=== PATIENT | female | born 1990 | race African-American/Black ===

== ENCOUNTER 2016-08-08 11:41 | Emergency (ER) | payer MEDICAID ==
[~2016-08-08] VITALS: Ht 160 cm; Wt 63.5 kg
[~2016-08-08 11:41] MED LIST: PREN29TA PO; ZOFR4TAB3 SL
[2016-08-08 11:44] VITALS: BP 142/89; PULSE 76; RESP 18; TEMP 98.6; O2SAT 98
[2016-08-08 12:33] LABS: BLOOD, URINE NEG (NEG); COMMENT (UR) CULT NOT INDICATED; CULTURE IF INDICATED CULT NOT INDICATED; GLUCOSE,URINE NEG (NEG); KETONE, URINE NEG (NEG); NITRITE,URINE NEG (NEG); PH, URINE 6.5 (5.0-8.5); SQUAMOUS EPITHELIAL CELL URINE 8 /hpf (0-5); URINE COLOR YELLOW (YELLW/STRAW)
--- NOTE | 2016-08-08 12:54 | PD ---
HPI Chief Complaint: Complaint Travel History International Travel<30 days: No Contact w/Intl Traveler<30days: No Traveled to known affect area: No History Social History Alcohol Use: Yes Tobacco Use: Yes Allergies-Medications (Allergen,Severity, Reaction): Coded Allergies: No Known Allergies (Verified , 08/08/16) Reported Meds & Prescriptions Reported Meds & Active Scripts Active Plus Iron 29-1 mg ( Vit-Iron Carbonyl) 1 Tab Tab 1 Tab PO DAILY Zofran Odt (Ondansetron Odt) 4 Mg Tab 4 Mg SL Q6HR PRN 5 Days Data Data Last Documented VS Vital Signs Date Time Temp Pulse Resp B/P Pulse Ox O2 Delivery O2 Flow Rate FiO2 08/08/16 11:44 98.6 76 18 142/89 98 Orders Urinalysis - C+S If Indicated (08/08/16 11:57) Ed Urine Pregnancytest Poc (08/08/16 13:02) Labs Laboratory Tests Test 08/08/16 12:00 Urine Color YELLOW Urine Turbidity HAZY Urine pH 6.5 Urine Specific [place] 1.024 Urine Protein NEG mg/dL Urine Glucose (UA) NEG mg/dL Urine Ketones NEG mg/dL Urine Occult Blood NEG Urine Nitrite NEG Urine Bilirubin NEG Urine Urobilinogen 2.0 MG/DL Urine Leukocyte Esterase NEG Urine RBC 1 /hpf Urine WBC 1 /hpf Urine Squamous Epithelial 8 /hpf Cells Microscopic Urinalysis Comment CULT NOT INDICATED MDM Medical Screen Exam Complete: Yes Emergency Medical Condition: No Primary Impression: Encounter for medical screening examination Condition: Stable Jing Cook Aug 08, 2016 12:54
--- NOTE | 2016-08-08 13:04 | PD ---
HPI . Uncertain if Chief Complaint: Complaint Time Seen by Provider: 12:40 Travel History International Travel<30 days: No Contact w/Intl Traveler<30days: No Traveled to known affect area: No History of Present Illness HPI 25 Year-old female with no past medical history here telling me that she has taken for test at home to her positive and 2 were negative. She is here she wants to find out if she is . She is overdue for her menses by 2 weeks. She does admit there is a chance she is . She has two kids at home and states she was not planning on having another. She denies any abdominal pain, nausea, vomiting, diarrhea, or pain. PFSH Past Medical History Blood Disorders: No Anxiety: No Depression: No Cardiovascular Problems: No Diminished Hearing: No Endocrine: No Genitourinary: No Immune Disorder: No Musculoskeletal: No Neurologic: No Psychiatric: No Reproductive: No Respiratory: No Immunizations Current: Yes PNEUMOCCOCAL Vaccine (Year): 3 : 3 Para: 2 : 1 Dilation and Curettage (D&C): Yes (11/2010) Social History Alcohol Use: Yes Tobacco Use: Yes Substance Use: No Allergies-Medications (Allergen,Severity, Reaction): Coded Allergies: No Known Allergies (Verified , 08/08/16) Reported Meds & Prescriptions Reported Meds & Active Scripts Active Plus Iron 29-1 mg ( Vit-Iron Carbonyl) 1 Tab Tab 1 Tab PO DAILY Plus Iron 29-1 mg ( Vit-Iron Carbonyl) 1 Tab Tab 1 Tab PO DAILY Zofran Odt (Ondansetron Odt) 4 Mg Tab 4 Mg SL Q6HR PRN 5 Days Review of Systems General / Constitutional: No: Fever Eyes: No: Visual changes HENT: No: Headaches Cardiovascular: No: Chest Pain or Discomfort Respiratory: No: Shortness of Breath Gastrointestinal: No: Nausea, Vomiting, Abdominal Pain Genitourinary: No: Dysuria Musculoskeletal: No: Pain Skin: No Rash Neurologic: No: Weakness Psychiatric: No: Depression Endocrine: No: Polydipsia Hematologic/Lymphatic: No: Easy Bruising Physical Exam Narrative GENERAL: AAO x 3, no acute distress, Well-nourished, well-developed patient. SKIN: Warm and dry. No visible rashes or bruising. HEAD: Normocephalic and atraumatic. EYES: No scleral icterus. No injection or drainage. EOM intact, PERRLA ENT: No nasal drainage noted. Mucous membranes pink. Airway patent. NECK: Supple, trachea midline. No JVD. CARDIOVASCULAR: Regular rate and rhythm without murmurs, gallops, or rubs. RESPIRATORY: Breath sounds equal bilaterally. No accessory muscle use. No rhonchi or rales. GASTROINTESTINAL: Abdomen soft, non-tender, nondistended. EXTREMITIES: No cyanosis or edema. BACK: Nontender without obvious deformity. No CVA tenderness. PSYCH: AAO x 3, normal affect. Data Data Last Documented VS Vital Signs Date Time Temp Pulse Resp B/P Pulse Ox O2 Delivery O2 Flow Rate FiO2 08/08/16 11:44 98.6 76 18 142/89 98 Orders Urinalysis - C+S If Indicated (08/08/16 11:57) Ed Urine Pregnancytest Poc (08/08/16 13:02) Labs Laboratory Tests Test 08/08/16 12:00 Urine Color YELLOW Urine Turbidity HAZY Urine pH 6.5 Urine Specific [place] 1.024 Urine Protein NEG mg/dL Urine Glucose (UA) NEG mg/dL Urine Ketones NEG mg/dL Urine Occult Blood NEG Urine Nitrite NEG Urine Bilirubin NEG Urine Urobilinogen 2.0 MG/DL Urine Leukocyte Esterase NEG Urine RBC 1 /hpf Urine WBC 1 /hpf Urine Squamous Epithelial 8 /hpf Cells Microscopic Urinalysis Comment CULT NOT INDICATED MDM Medical Decision Making Medical Screen Exam Complete: Yes Emergency Medical Condition: Yes Medical Record Reviewed: Yes Differential Diagnosis amenorrhea due to , blighted ovum, ectopic Narrative Course 25 Year-old female with no past medical history here telling me that she has taken for test at home to her positive and 2 were negative. She is here she wants to find out if she is . She is overdue for her menses by 2 weeks. She does admit there is a chance she is . She has two kids at home and states she was not planning on having another. She denies any abdominal pain, nausea, vomiting, diarrhea, or pain. Urine preg is negative. UA is negative. I discussed results with the patient. Recommend she find a primary care provider in the area for further medical care. I advised follow-up in 3-5 days. I encouraged her to start taking vitamins. Patient verbalized understanding of instructions, questions were answered, and thanked me for their care. I advised them if their condition worsens, please return to the nearest emergency room for further care. Diagnosis Primary Impression: Amenorrhea Patient Instructions: General Instructions Additional Instructions: Please find a new primary care provider to help navigate your health care needs. You should try to get an appointment in 3-5 days. You can start taking prenatals if you plan on becoming . Return to ED if your symptoms worsen. Scripts Vit-Iron Carbonyl ( Plus Iron 29-1 mg)1 Tab Tab1 Tab PO DAILY #30 TAB Ref 0 Prov:Jing Cook 08/08/16 Disposition: 01 DISCHARGE HOME Condition: Stable Jing Cook Aug 08, 2016 13:04
[2016-08-08] MEDS ORDERED: PREN29TA PO (13:10)
== END 2016-08-08 13:22 | disposition home or self-care (01) ==
LOC: NEPB 11:41
DX: N91.2 Amenorrhea, unspecified (principal); Z32.02 Encounter for pregnancy test, result negative
CPT/HCPCS: 81001; 84703; 99283

== ENCOUNTER 2017-02-19 09:51 | Emergency (ER) | payer MEDICAID ==
[2017-02-19 09:53] VITALS: BP 128/88; PULSE 65; RESP 17; TEMP 98.4; O2SAT 98
[2017-02-19 10:45] LABS: AUTOMATED NEUTROPHIL # 4.1 TH/MM3 (1.8-7.7); BASOPHIL % 0.5 % (0.0-2.0); EOSINOPHIL # 0.3 TH/MM3 (0-0.4); EOSINOPHIL % 3.9 % (0.0-4.0); HEMATOCRIT 32.9 % (35.0-46.0); HEMO FLAGS DIFF FINAL; LYMPHOCYTE # 2.1 TH/MM3 (1.0-4.8); MEAN CELL VOLUME 88.8 FL (80.0-100.0); MEAN CORPUSCULAR HEMOGLOBIN 28.6 PG (27.0-34.0); MEAN CORPUSCULAR HGB CONC 32.2 % (32.0-36.0); MONO % 12.1 % (0.0-8.0); NEUT % 55.5 % (16.0-70.0); PLATELET COUNT 301 TH/MM3 (150-450); RED BLOOD COUNT 3.71 MIL/MM3 (4.00-5.30); RED CELL DISTRIBUTION WIDTH 12.9 % (11.6-17.2); WHITE BLOOD COUNT 7.4 TH/MM3 (4.0-11.0)
[2017-02-19 10:47] LABS: BLOOD, URINE SMALL (NEG); GLUCOSE,URINE NEG (NEG); KETONE, URINE NEG (NEG); MUCUS URINE FEW /lpf (OCC); NITRITE,URINE NEG (NEG); PH, URINE 6.5 (5.0-8.5); SQUAMOUS EPITHELIAL CELL URINE 1 /hpf (0-5); URINE COLOR YELLOW (YELLW/STRAW)
[2017-02-19 10:57] LABS: ANION GAP 6 MEQ/L (5-15); AST (GOT) 19 U/L (15-37); BICARBONATE 26.3 MEQ/L (21.0-32.0); BLOOD UREA NITROGEN 15 MG/DL (7-18); CHLORIDE 107 MEQ/L (98-107); GLOMERULAR FILTRATION RATE 111 ML/MIN (>89); POTASSIUM 3.7 MEQ/L (3.5-5.1); SODIUM (NA) 139 MEQ/L (136-145)
[2017-02-19 10:59] LABS: ALT (GPT) 28 U/L (10-53)
[2017-02-19 11:01] LABS: COMMENT (UR) CULT NOT INDICATED; CULTURE IF INDICATED CULT NOT INDICATED
[2017-02-19 11:34] LABS: TOTAL BILIRUBIN ADULT 0.3 MG/DL (0.2-1.0)
[2017-02-19 11:43] LABS: ALKALINE PHOSPHATASE 45 U/L (45-117)
[2017-02-20] MEDS ORDERED: ZANT150T2 PO (00:48)
== END 2017-02-19 11:10 | disposition left against medical advice (07) ==
LOC: NED 09:51
DX: R10.13 Epigastric pain (principal)
CPT/HCPCS: 80053; 81001; 83690; 85025; 99281

== ENCOUNTER 2017-02-19 22:36 | Emergency (ER) | payer MEDICAID ==
[~2017-02-19] VITALS: Ht 162.6 cm; Wt 70.5 kg
[2017-02-19 22:37] VITALS: BP 137/92; PULSE 63; RESP 15; TEMP 99; O2SAT 100
[2017-02-19] MEDS ORDERED: ALUMINUM/MAGNESIUM/SIMETH 30 ML CUP PO ONE (23:30)
[2017-02-19] MEDS ORDERED: LIDOCAINE VISCOUS 2% SOLN 15 ML UDC SWISH-SWAL ONE (23:30)
--- NOTE | 2017-02-19 23:54 | PD ---
HPI Chief Complaint: Abdominal Pain Time Seen by Provider: 23:25 Travel History International Travel<30 days: No Contact w/Intl Traveler<30days: No Traveled to known affect area: No History of Present Illness HPI 26-year-old black female presents a department complaints of epigastric pain for the past 3 days. She states the pain is been constant but has had some waxing and waning of intensity. She states the pain is a 10/10. Sharp and stabbing in nature with radiation to her back. She states the pain is exacerbated by walking and laying down. It is unaffected by her appetite. She ate cheesy tots just prior to coming into the ER this evening. She denies any fever or chills. No nausea vomiting. No lower abdominal pain or vaginal complaints. She denies any radiation of pain to the right shoulder. She denies any exacerbation by eating food. There is no alleviating factors. Last menstrual. Was one week ago. PFSH Past Medical History Medical History: Denies Significant Hx Blood Disorders: No Anxiety: No Depression: No Cardiovascular Problems: No Diminished Hearing: No Endocrine: No Genitourinary: No Immune Disorder: No Musculoskeletal: No Neurologic: No Psychiatric: No Reproductive: No Respiratory: No Immunizations Current: Yes Influenza Vaccination: No PNEUMOCCOCAL Vaccine (Year): 3 ?: Unknown LMP: 02/13/2017 : 3 Para: 2 : 1 Dilation and Curettage (D&C): Yes (11/2010) Social History Alcohol Use: Yes ([facility]) Tobacco Use: No Substance Use: No Allergies-Medications (Allergen,Severity, Reaction): Coded Allergies: No Known Allergies (Verified , 02/19/17) Reported Meds & Prescriptions Reported Meds & Active Scripts Active Zantac (Ranitidine HCl) 150 Mg Tab 150 Mg PO BID Review of Systems Except as stated in HPI: all other systems reviewed are Neg Physical Exam Narrative GENERAL: Well-developed, well-nourished in no apparent distress. Nontoxic appearing. HEAD: Normocephalic, atraumatic. EYES: Pupils equal round and reactive. Extraocular motions intact. No scleral icterus. No injection or drainage. ENT: Nose clear. Throat without erythema, tonsillar hypertrophy or exudate. Uvula midline. Airway patent. NECK: Trachea midline. Supple, nontender, moves head freely. No central bony tenderness or spasm. CARDIOVASCULAR: Regular rate and rhythm without murmurs, gallops, or rubs. RESPIRATORY: Clear to auscultation. Breath sounds equal bilaterally. No wheezes , rales, or rhonchi. GASTROINTESTINAL: Abdomen soft, obese, tenderness in the epigastric and right upper quadrant with some mild guarding.. No hepato-splenomegaly, or palpable masses. No rebound. EXTREMITIES: No clubbing, cyanosis, or edema. No joint tenderness. BACK: Nontender without deformity. No flank tenderness. NEUROLOGICAL: Awake, alert and oriented x 3 .Cranial nerves grossly intact. Motor and sensory grossly within normal limits. Normal speech. Data Data Last Documented VS Vital Signs Date Time Temp Pulse Resp B/P (MAP) Pulse Ox O2 Delivery O2 Flow Rate FiO2 02/19/17 22:37 99.0 63 15 137/92 (107) 100 Room Air Orders Orders Complete Blood Count With Diff (02/19/17 23:30) Comprehensive Metabolic Panel (02/19/17 23:30) Lipase (02/19/17 23:30) Urinalysis - C+S If Indicated (02/19/17 23:30) Iv Access Insert/Monitor (02/19/17 23:30) Ed Urine Pregnancytest Poc (02/19/17 23:30) Al-Mag Hy-Si 40-40-4 Mg/Ml Liq (Mag-Al P (02/19/17 23:30) Lidocaine 2% Viscous (Xylocaine 2% Visco (02/19/17 23:30) Labs Laboratory Tests Test 02/19/17 23:55 White Blood Count 9.6 TH/MM3 Red Blood Count 4.07 MIL/MM3 Hemoglobin 12.0 GM/DL Hematocrit 35.7 % Mean Corpuscular Volume 87.9 FL Mean Corpuscular Hemoglobin 29.5 PG Mean Corpuscular Hemoglobin Concent 33.6 % Red Cell Distribution Width 12.7 % Platelet Count 291 TH/MM3 Mean Platelet Volume 9.5 FL Neutrophils (%) (Auto) 52.6 % Lymphocytes (%) (Auto) 34.3 % Monocytes (%) (Auto) 8.3 % Eosinophils (%) (Auto) 4.1 % Basophils (%) (Auto) 0.7 % Neutrophils # (Auto) 5.1 TH/MM3 Lymphocytes # (Auto) 3.3 TH/MM3 Monocytes # (Auto) 0.8 TH/MM3 Eosinophils # (Auto) 0.4 TH/MM3 Basophils # (Auto) 0.1 TH/MM3 CBC Comment DIFF FINAL Differential Comment Urine Color YELLOW Urine Turbidity CLEAR Urine pH 7.0 Urine Specific [place] 1.023 Urine Protein NEG mg/dL Urine Glucose (UA) NEG mg/dL Urine Ketones NEG mg/dL Urine Occult Blood NEG Urine Nitrite NEG Urine Bilirubin NEG Urine Urobilinogen 2.0 MG/DL Urine Leukocyte Esterase NEG Urine RBC LESS THAN 1 /hpf Urine Squamous Epithelial Cells 2 /hpf Urine Mucus FEW /lpf Microscopic Urinalysis Comment CULT NOT INDICATED Blood Urea Nitrogen 19 MG/DL Creatinine 0.71 MG/DL Random Glucose 105 MG/DL Total Protein 7.2 GM/DL Albumin 3.4 GM/DL Calcium Level 8.2 MG/DL Alkaline Phosphatase 45 U/L Aspartate Amino Transf (AST/SGOT) 21 U/L Alanine Aminotransferase (ALT/SGPT) 27 U/L Total Bilirubin 0.2 MG/DL Sodium Level 142 MEQ/L Potassium Level 3.5 MEQ/L Chloride Level 107 MEQ/L Carbon Dioxide Level 28.4 MEQ/L Anion Gap 7 MEQ/L Estimat Glomerular Filtration Rate 121 ML/MIN Lipase 218 U/L [facility] Medical Decision Making Medical Screen Exam Complete: Yes Emergency Medical Condition: Yes Medical Record Reviewed: Yes Differential Diagnosis Differential diagnoses: Gastritis, reflux, cholecystitis, a calculus cholecystitis, pancreatitis Narrative Course IV access is obtained. Routine laboratory tests and for analysis. Patient's given a GI cocktail of viscous lidocaine and Maalox. Patient is reexamined. She looks nontoxic she is resting comfortable. She states her pain is improving. The patient is advised to contact Dr. Ramirez came her primary care doctor in the morning to make definitive follow-up. Patient is given a prescription for Zantac. This is abdominal pain Diagnosis Primary Impression: Abdominal pain Qualified Codes: R10.13 - Epigastric pain Patient Instructions: General Instructions Additional Instructions: Rest. [place] food for the next 24 hours. Zantac. Clear primary care doctor in the morning for an appointment in the next 24-72 hours Return to the ER for emergencies. Med/Other Pt SpecificInfo: Prescription(s) given Scripts Ranitidine (Zantac) 150 Mg Tab 150 MG PO BID for Reduce Stomach Acid, #20 TAB 0 Refills Prov: Bravo Solano MD 02/20/17 Disposition: 01 DISCHARGE HOME Condition: Stable Vance Arenas Feb 19, 2017 23:54
[2017-02-20 00:06] LABS: AUTOMATED NEUTROPHIL # 5.1 TH/MM3 (1.8-7.7); BASOPHIL # 0.1 TH/MM3 (0-0.2); BASOPHIL % 0.7 % (0.0-2.0); EOSINOPHIL # 0.4 TH/MM3 (0-0.4); EOSINOPHIL % 4.1 % (0.0-4.0); HEMATOCRIT 35.7 % (35.0-46.0); HEMO FLAGS DIFF FINAL; LYMPH % 34.3 % (9.0-44.0); LYMPHOCYTE # 3.3 TH/MM3 (1.0-4.8); MEAN CELL VOLUME 87.9 FL (80.0-100.0); MEAN CORPUSCULAR HEMOGLOBIN 29.5 PG (27.0-34.0); MEAN CORPUSCULAR HGB CONC 33.6 % (32.0-36.0); MONO % 8.3 % (0.0-8.0); NEUT % 52.6 % (16.0-70.0); PLATELET COUNT 291 TH/MM3 (150-450); RED BLOOD COUNT 4.07 MIL/MM3 (4.00-5.30); RED CELL DISTRIBUTION WIDTH 12.7 % (11.6-17.2); WHITE BLOOD COUNT 9.6 TH/MM3 (4.0-11.0)
[2017-02-20 00:14] LABS: BLOOD, URINE NEG (NEG); COMMENT (UR) CULT NOT INDICATED; CULTURE IF INDICATED CULT NOT INDICATED; GLUCOSE,URINE NEG (NEG); KETONE, URINE NEG (NEG); MUCUS URINE FEW /lpf (OCC); NITRITE,URINE NEG (NEG); SQUAMOUS EPITHELIAL CELL URINE 2 /hpf (0-5); URINE COLOR YELLOW (YELLW/STRAW)
[2017-02-20 00:26] LABS: ALT (GPT) 27 U/L (10-53); ANION GAP 7 MEQ/L (5-15); AST (GOT) 21 U/L (15-37); BICARBONATE 28.4 MEQ/L (21.0-32.0); BLOOD UREA NITROGEN 19 MG/DL (7-18); CHLORIDE 107 MEQ/L (98-107); GLOMERULAR FILTRATION RATE 121 ML/MIN (>89); POTASSIUM 3.5 MEQ/L (3.5-5.1); SODIUM (NA) 142 MEQ/L (136-145)
[2017-02-20 00:28] LABS: ALKALINE PHOSPHATASE 45 U/L (45-117); TOTAL BILIRUBIN ADULT 0.2 MG/DL (0.2-1.0)
[2017-02-20] MEDS ORDERED: ZANT150T2 PO (00:48)
== END 2017-02-20 02:52 | disposition home or self-care (01) ==
LOC: NEPD 22:36
DX: R10.13 Epigastric pain (principal)
CPT/HCPCS: 80053; 81001; 83690; 84703; 85025; 99283

== ENCOUNTER 2017-05-18 16:51 | Emergency (ER) | payer MEDICAID ==
[~2017-05-18] VITALS: Ht 160 cm; Wt 76.0 kg
[~2017-05-18 16:51] MED LIST changes: -PREN29TA PO; +ZANT150T2 PO; -ZOFR4TAB3 SL
[2017-05-18 16:56] VITALS: BP 111/64; PULSE 71; RESP 16; TEMP 99.7; O2SAT 98
[2017-05-18] MEDS ORDERED: IBUPROFEN 800 MG TAB PO ONE (17:15)
[2017-05-18 17:35] VITALS: TEMP 99
--- NOTE | 2017-05-18 17:45 | RADRPT ---
EXAM DATE/TIME: 05/18/2017 17:18 [place] COMPARISON: No previous studies available for comparison. INDICATIONS : Left side rib pain. MEDICAL HISTORY : None. SURGICAL HISTORY : None. ENCOUNTER: Initial ACUITY: 2 days PAIN SCORE: 4/10 LOCATION: Left chest FINDINGS: 5 views of the left ribs and chest demonstrate no rib fracture or acute rib abnormality. No pneumotho rax is present. Surrounding structures demonstrate no acute finding. CONCLUSION: No acute abnormality is identified. Josesito Anne MD on May 18, 2017 at 17:41 Board Certified Radiologist. This report was verified electronically.
[2017-05-18] MEDS ORDERED: MEDI220T PO (17:51)
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
== END 2017-05-18 17:59 | disposition home or self-care (01) ==
LOC: PHEFT 16:51
DX: S20.219A Contusion of unspecified front wall of thorax, initial encounter (principal)
CPT/HCPCS: 71101; 99283

== ENCOUNTER 2017-08-19 17:54 | Emergency (ER) | payer MEDICAID ==
[~2017-08-19] VITALS: Ht 162.6 cm; Wt 78.2 kg
[~2017-08-19 17:54] MED LIST changes: +MEDI220T PO; -ZANT150T2 PO
[2017-08-19 18:04] VITALS: BP 128/64; PULSE 66; RESP 16; TEMP 98.7; O2SAT 99
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
== END 2017-08-19 19:38 | disposition left against medical advice (07) ==
LOC: PHED 17:54 → PHEFT 19:38
DX: S09.90XA Unspecified injury of head, initial encounter (principal); Y04.0XXA Assault by unarmed brawl or fight, initial encounter
CPT/HCPCS: 99282

== ENCOUNTER 2017-09-07 16:53 | Emergency (ER) | payer MEDICAID ==
[~2017-09-07] VITALS: Ht 162.6 cm; Wt 80.0 kg
[2017-09-07 16:58] VITALS: BP 121/58; PULSE 85; RESP 18; TEMP 99; O2SAT 96
[2017-09-07 17:15] LABS: BILIRUBIN, URINE NEG (NEG); BLOOD, URINE NEG (NEG); GLUCOSE,URINE NEG (NEG); KETONE, URINE NEG (NEG); NITRITE,URINE NEG (NEG); URINE COLOR YELLOW (YELLW/STRAW); URINE LEUKOCYTE ESTERASE NEG (NEG)
[2017-09-07] MEDS ORDERED: PRED20 PO (17:17)
[2017-09-07] MEDS ORDERED: MAGICADU2 SWISH-SWAL (17:17)
[2017-09-07] MEDS ORDERED: AMOX875T PO (17:17)
--- NOTE | 2017-09-07 17:18 | PD ---
HPI Chief Complaint: ENT Complaint Time Seen by Provider: 17:09 Travel History International Travel<30 days: No Contact w/Intl Traveler<30days: No Traveled to known affect area: No History of Present Illness HPI 27-year-old female that presents to the ED for evaluation of sore throat and congestion. Per patient she's been having cold-like symptoms for some time but per patient she just came back from [place] and the symptoms worsened since yesterday. Per patient she's been having high fevers, congestion and cough. She is concerned because she has some neck pain with the coughing. She also developed a sensation of fullness to her abdomen which lasted for 1 hour and then it went away. She has no belly pain at this time. She states she has some diarrhea. No urinary or bowel movement issues. No chest pain or shortness of breath. Cough is productive. Congestion is yellow and green. She states having ear fullness but no pain. Main complaint is the sore throat which causes a lot of discomfort when she swallows. Per patient the tonsils are red and swollen. PFSH Past Medical History Medical History: Denies Significant Hx Hx Anticoagulant Therapy: No Diminished Hearing: No Implanted Vascular Access Dvce: No Immunizations Current: Yes Tetanus Vaccination: < 5 Years Influenza Vaccination: No PNEUMOCCOCAL Vaccine (Year): 3 ?: Not LMP: 08/10/17 : 3 Para: 2 : 1 Dilation and Curettage (D&C): Yes (11/2010) Social History Alcohol Use: Yes ([facility]) Tobacco Use: No Substance Use: No Allergies-Medications (Allergen,Severity, Reaction): Coded Allergies: No Known Allergies (Verified Adverse Reaction, Unknown, 08/19/17) Reported Meds & Prescriptions Reported Meds & Active Scripts Active Amoxicillin 875 Mg Tab 875 Mg PO BID 10 Days Magic Mouthwash Adult Liq (Multi-Ingredient Mouthwash/Gargle) 120 Ml Susp 5 Ml SWISH-SWAL ACHS Each 5mL contains: Nystatin 200,000units, Diphenhydramine 4.25mg, Viscous Lidocaine 10mg, Mccartney syrup 0.8 mL Prednisone 20 Mg Tab 20 Mg PO BID 5 Days Review of Systems Except as stated in HPI: all other systems reviewed are Neg Physical Exam Narrative GENERAL: Well-nourished, well-developed patient in no apparent distress. SKIN: Warm and dry. HEAD: Atraumatic. Normocephalic. EYES: Pupils equal and round reactive to light and accommodation. No scleral icterus. No injection or drainage. ENT: No nasal bleeding or discharge. Mucous membranes pink and moist. TMs are clear with no sign of infection or perforation. No mastoid tenderness. Ear canals are intact bilaterally. No lymphadenopathy. Nostril mucosa is red and moist with clear mucus noted. No sinus tenderness to palpation noted. Tonsils are large and swollen and erythematous but no exudates not touching. No ulvua Deviation. Tongue is midline. NECK: Trachea midline. No JVD. No meningeal signs noted CARDIOVASCULAR: Regular rate and rhythm. RESPIRATORY: No accessory muscle use. Clear to auscultation. Breath sounds equal bilaterally. GASTROINTESTINAL: Abdomen soft, non-tender, nondistended. Hepatic and splenic margins not palpable. MUSCULOSKELETAL: Extremities without clubbing, cyanosis, or edema. No obvious deformities. NEUROLOGICAL: Awake and alert. No obvious cranial nerve deficits. Motor grossly within normal limits. Five out of 5 muscle strength in the arms and legs. Normal speech. PSYCHIATRIC: Appropriate mood and affect; insight and judgment normal. Data Data Last Documented VS Vital Signs Date Time Temp Pulse Resp B/P (MAP) Pulse Ox O2 Delivery O2 Flow Rate FiO2 09/07/17 16:58 99.0 85 18 121/58 (79) 96 Orders Orders Urinalysis - C+S If Indicated (09/07/17 17:04) Ed Urine Pregnancytest Poc (09/07/17 17:04) Ed Discharge Order (09/07/17 17:18) Labs Laboratory Tests Test 09/07/17 17:10 [facility] Medical Decision Making Medical Screen Exam Complete: Yes Emergency Medical Condition: Yes Medical Record Reviewed: Yes Interpretation(s) UA preg test negative Differential Diagnosis Pharyngitis versus tonsillitis versus sinusitis versus strep throat Narrative Course 27-year-old female that presents to the ED for evaluation of cold-like symptoms. Patient was properly examined and was found to have signs and symptoms very consistent appears to be tonsillitis. Very likely strep throat. We'll treat with amoxicillin, prednisone and Magic mouthwash to help with symptoms. She was instructed to take dqpa-pph-lzywdci remedies. Rest and fluids. See ED worsening symptoms. Follow with PCP. Diagnosis Primary Impression: Acute tonsillitis Qualified Codes: J03.90 - Acute tonsillitis, unspecified Patient Instructions: General Instructions Additional Instructions: Motrin and Tylenol for pain and fever. You can use [id number] antihistamine as well as well as Mucinex as needed for runny nose and congestion. Cough drops for cough as needed. Drink plenty of fluids. Follow-up with PCP. See ED for worsening symptoms. Med/Other Pt SpecificInfo: Prescription(s) given Scripts Amoxicillin (Amoxicillin) 875 Mg Tab 875 MG PO BID for Infection for 10 Days, #20 TAB 0 Refills Prov: Douglas Raya MD 09/07/17 Vxzrvwsu-Pruolxjzzkejkbl-Nllflalst Liq (Magic Mouthwash Adult Liq) 120 Ml Susp 5 ML SWISH-SWAL ACHS for Mouth sores, #120 ML 0 Refills Each 5mL contains: Nystatin 200,000units, Diphenhydramine 4.25mg, Viscous Lidocaine 10mg, Mccartney syrup 0.8 mL Prov: Douglas Raya MD 09/07/17 Prednisone (Prednisone) 20 Mg Tab 20 MG PO BID for 5 Days, #10 TAB 0 Refills Prov: Douglas Raya MD 09/07/17 Disposition: 01 DISCHARGE HOME Condition: Stable Jayson Ashby Sep 07, 2017 17:18
[2017-09-07 17:33] LABS: SQUAMOUS EPITHELIAL CELL URINE 0-5 /hpf (0-5)
== END 2017-09-07 17:25 | disposition home or self-care (01) ==
LOC: PHED 16:53 → PHEFT 17:25
DX: J03.90 Acute tonsillitis, unspecified (principal)
CPT/HCPCS: 81001; 84703; 99283

== ENCOUNTER 2017-11-24 19:52 | Emergency (ER) | payer MEDICAID ==
[~2017-11-24] VITALS: Ht 162.6 cm; Wt 82.2 kg
[~2017-11-24 19:52] MED LIST changes: +AMOX875T PO; +MAGICADU2 SWISH-SWAL; -MEDI220T PO; +PRED20 PO
[2017-11-24 20:02] VITALS: BP 125/78; PULSE 105; RESP 16; TEMP 102.2; O2SAT 97
--- NOTE | 2017-11-24 20:58 | PD ---
HPI . Sore throat Chief Complaint: ENT Complaint Time Seen by Provider: 20:41 Travel History International Travel<30 days: No Contact w/Intl Traveler<30days: No Traveled to known affect area: No History of Present Illness HPI Patient presents with chief complaint of sore throat and fever. Her daughter is being seen here as well. She reports the onset of symptoms 2 days ago. Associated symptoms include cough and vomiting. She has not taken anything for her symptoms such as Tylenol or ibuprofen. She rates her throat pain as 10/10. PFSH Past Medical History Hx Anticoagulant Therapy: No Diminished Hearing: No Implanted Vascular Access Dvce: No Immunizations Current: Yes PNEUMOCCOCAL Vaccine (Year): 3 ?: Not LMP: 10/27/17 : 3 Para: 2 : 1 Dilation and Curettage (D&C): Yes (11/2010) Social History Alcohol Use: Yes (OCC) Tobacco Use: No Substance Use: No Allergies-Medications (Allergen,Severity, Reaction): Coded Allergies: No Known Allergies (Verified Adverse Reaction, Unknown, 11/24/17) Reported Meds & Prescriptions Reported Meds & Active Scripts Active No Active Prescriptions or Reported Medications Review of Systems Except as stated in HPI: all other systems reviewed are Neg General / Constitutional: Positive: Fever, Chills HENT: Positive: Sore Throat Gastrointestinal: Positive: Nausea, Vomiting Musculoskeletal: Positive: Myalgias Physical Exam Narrative GENERAL: Awake and alert and in no acute distress. SKIN: Warm and dry. HEAD: Normocephalic/atraumatic. EYES: Pupils are equal. Extraocular movements are intact. ENT: Tonsillar enlargement. Mild erythema. No exudate. NECK: Normal range of motion. Supple. No cervical lymphadenopathy. CARDIOVASCULAR: Regular rate and rhythm. RESPIRATORY: Nonlabored respirations. MUSCULOSKELETAL: Atraumatic. NEUROLOGICAL: Nonfocal. PSYCHIATRIC: Appropriate mood and affect. Data Data Last Documented VS Vital Signs Date Time Temp Pulse Resp B/P (MAP) Pulse Ox O2 Delivery O2 Flow Rate FiO2 11/24/17 20:02 102.2 105 16 125/78 (94) 97 Orders Orders Group A Rapid Strep Screen (11/24/17 20:47) Ibuprofen (Motrin) (11/24/17 21:00) Strep Culture (Group A) (11/24/17 20:45) MDM Medical Decision Making Medical Screen Exam Complete: Yes Emergency Medical Condition: Yes Differential Diagnosis Differential diagnosis of sore throat includes but is not limited to viral illness, strep throat, mononucleosis, retropharyngeal abscess, peritonsillar abscess Narrative Course This patient presents with sore throat and fever. She has not taken anything for prior to presentation. She will be given a dose of ibuprofen. Rapid strep screen is pending. Rapid strep screen is negative. She will be discharged home with instructions and symptomatic care. Diagnosis Primary Impression: Acute pharyngitis Qualified Codes: J02.9 - Acute pharyngitis, unspecified Patient Instructions: Fever in Adults (ED), General Instructions, Pharyngitis ( DC) Additional Instructions: You may use Chloraseptic spray and throat lozenges as needed. Warm salt water gargles are often helpful. You may take Tylenol or ibuprofen for fever and body aches. Scripts No Active Prescriptions or Reported Meds Disposition: 01 DISCHARGE HOME Condition: Stable Lexi Arellano MD November 24, 2017 20:58
[2017-11-24] MEDS ORDERED: IBUPROFEN 800 MG TAB PO ONE (21:00)
[2017-11-24 21:30] VITALS: TEMP 101.2
== END 2017-11-24 21:33 | disposition home or self-care (01) ==
LOC: PHED 19:52 → PHEFT 21:33
DX: J02.0 Streptococcal pharyngitis (principal); L53.9 Erythematous condition, unspecified; R11.2 Nausea with vomiting, unspecified
CPT/HCPCS: 87081; 87880; 99283